=== PATIENT | female | born 1995 | race Caucasian/White ===

== ENCOUNTER 2018-04-12 21:57 | Inpatient (IN) | payer BC, OTHER ==
[~2018-04-12] VITALS: Ht 160 cm; Wt 52.2 kg
--- NOTE | 2018-04-12 23:35 | NUR ---
Pre-Admission Note Pt is a 23 year old female seen at intake, A&Ox4. Pt appears to be anxious. Pt reports feeling fatigued, and states, "I feel like am all over the place". Upon assessment, pt often changes the answers to the questions being asked. Pt reports she is here for benzodiazepines, opiates, alcohol and also uses methamphetamines, cocaine and cannabis. Vital signs taken, rules of the unit explained such as vital signs Q4H, wasting of controlled substances, kitchen access, and smoking patio privileges. Pt verbalized understanding. Will continue with admission process upon arrival on unit.
[2018-04-13] VITALS: BP 118/70
[2018-04-13] MEDS ORDERED: diphenhydrAMINE 50 MG CAPSULE PO PRN
[2018-04-13] MEDS ORDERED: HYDROXYZINE PAMOATE 25 MG CAPSULE PO PRN
[2018-04-13] MEDS ORDERED: CLONIDINE HCL 0.1 MG TABLET PO PRN
[2018-04-13] MEDS ORDERED: ONDANSETRON ODT 4 MG TAB.RAPDIS SL PRN
[2018-04-13] MEDS ORDERED: MIRALAX 17 GM POWD.PACK PO PRN
[2018-04-13] MEDS ORDERED: LOPERAMIDE HCL 2 MG CAPSULE PO PRN ×2
[2018-04-13] MEDS ORDERED: MAGNESIUM HYDROXIDE 30 ML LIQUID UDC PO PRN
[2018-04-13] MEDS ORDERED: LORAZEPAM 2 MG/1 ML VIAL IM PRN
[2018-04-13] MEDS ORDERED: ONDANSETRON 4 MG/2 ML VIAL IM PRN
[2018-04-13] MEDS ORDERED: METHOCARBAMOL 750 MG TABLET PO PRN
[2018-04-13] MEDS ORDERED: MAG HYDROX/AL HYDROX/SIMETH 30 ML LIQUID UDC PO PRN
[2018-04-13] MEDS ORDERED: IBUPROFEN 600 MG TABLET PO PRN
[2018-04-13] MEDS ORDERED: DIAZEPAM 5 MG TABLET PO PRN
[2018-04-13] MEDS ORDERED: DICYCLOMINE HCL 20 MG TABLET PO PRN
[2018-04-13] MEDS ORDERED: ACETAMINOPHEN 325 MG TABLET PO PRN
[2018-04-13] MEDS ORDERED: BUPRENORPHINE HCL 2 MG TAB.SUBL SL PRN
[2018-04-13] MEDS ORDERED: DIAZEPAM 10 MG TABLET PO PRN
--- NOTE | 2018-04-13 | NUR ---
COWS 10, CIWA 10 Patient reports that her anxiety is "always high." Patient reports "skin crawling, a little nausea, some chills." COWS 10 and CIWA 10 at this time, awaiting pending orders. Safety measures in place, side rails up x2, bed locked in low position, call light within reach. SN to complete admission. Will continue to monitor.
[2018-04-13 00:33] LABS: BASOPHILS % (AUTO) 0.4 % (0.0-2.0); EOSINOPHILS % (AUTO) 0.8 % (0.0-7.0); HEMATOCRIT 41.9 % (31.2-41.9); HEMOGLOBIN 14.5 g/dL (10.9-14.3); LYMPHOCYTES # (AUTO) 1.4 K/uL (20.0-40.0); LYMPHOCYTES % (AUTO) 26.1 % (20.5-51.5); MEAN CORPUSCULAR HEMOGLOBIN 29.9 uug (24.7-32.8); MEAN CORPUSCULAR HGB CONC 35 g/dL (32.3-35.6); MEAN CORPUSCULAR VOLUME 86.6 fL (75.5-95.3); MONOCYTES # (AUTO) 0.6 K/uL (2.0-10.0); MONOCYTES % (AUTO) 10.5 % (0.0-11.0); NEUTROPHILS # (AUTO) 3.4 K/uL (1.8-8.9); NEUTROPHILS % (AUTO) 62.2 % (38.5-71.5); PLATELET COUNT (AUTO) 242 K/uL (179-408); RED BLOOD CELL COUNT(AUTO) 4.84 MIL/uL (3.63-4.92); WHITE BLOOD COUNT (AUTO) 5.5 K/uL (3.8-11.8)
[2018-04-13 00:40] LABS: ETHANOL < 3 MG/DL (0-0)
[2018-04-13 00:58] LABS: ALANINE AMINOTRANSFERASE 333 U/L (14-59); ALKALINE PHOSPHATASE 107 U/L (50-136); AMYLASE 67 U/L (25-115); ASPARTATE AMINOTRANSFERASE 118 U/L (15-37); BILIRUBIN,TOTAL 0.8 mg/dL (0.2-1.0); CARBON DIOXIDE 29 mmol/L (21-32); CHLORIDE 102 mmol/L (98-107); CREATININE 0.7 mg/dL (0.6-1.3); GLUCOSE 85 mg/dL (74-106); MAGNESIUM 1.8 mg/dL (1.8-2.4); POTASSIUM 3.2 mmol/L (3.5-5.1); TOTAL PROTEIN, SERUM 7.5 g/dL (6.4-8.2); UREA NITROGEN, BLOOD 6 mg/dL (7-18)
[2018-04-13 01:14] LABS: LIPASE 144 U/L (73-393)
[2018-04-13 01:24] LABS: THYROID STIMULATING HORMONE 0.219 mIU/mL (0.358-3.740)
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
[2018-04-13] MEDS ORDERED: DIAZ5TAB4 PO (02:10)
[2018-04-13] MEDS ORDERED: GABA-534 PO (02:10)
[2018-04-13] MEDS ORDERED: MIRT15TA PO (02:10)
[2018-04-13] MEDS ORDERED: CLON0.2T PO (02:10)
[2018-04-13 02:14] LABS: *URINE HCG, QUAL NEGATIVE (NEGATIVE)
[2018-04-13 02:23] LABS: *AMPHETAMINE, URINE NEGATIVE (NEGATIVE); *BARBITURATE, URINE NEGATIVE (NEGATIVE); *CANNABINOID, URINE POSITIVE (NEGATIVE); *COCCAINE, URINE NEGATIVE (NEGATIVE); *OPIATE, URINE POSITIVE (NEGATIVE); *PHENCYCLIDINE SCREEN,URINE NEGATIVE (NEGATIVE)
--- NOTE | 2018-04-13 03:00 | NUR ---
COWS 13, CIWA 16 Patient states, "I'm pretty sure I'm withdrawing from the benzos, but I don't want to take Subutex until the morning." Patient complains of chills, nausea, "bones aching, skin crawling," and patient is visibly tremulous. Current COWS 13, CIWA 16. Safety measures in place, side rails up x2, bed locked in low position, call light within reach. Will continue to monitor.
[2018-04-13] MEDS ORDERED: POTASSIUM CHLORIDE 20 MEQ TAB.PRT.SR PO ONE ×2 (03:30→15:00)
[2018-04-13] MEDS: DIAZEPAM 10 MG TABLET PO PRN ×2 (03:33→10:09)
--- NOTE | 2018-04-13 03:33 | NUR ---
PRN VALIUM 20mg PRN Valium 20mg given PO for CIWA of 16. Patient continues to state that she would like to start Subutex in the morning. Safety measures in place, side rails up x2, bed locked in low position, call light within reach. Will monitor for effectiveness.
[2018-04-13 04:00] VITALS: BP 112/72
[2018-04-13] MEDS ORDERED: ETON68IM3 SQ (04:04)
--- NOTE | 2018-04-13 04:33 | NUR ---
PRN VALIUM REASSESSMENT - COWS 13, CIWA 16 Patient denies any improvement of withdrawal symptoms at one hour reassessment. Current HR 116, BP 131/88, O2 sat 99%, respirations 18/min. Patient denies pain at this time. Safety measures in place, side rails up x2, bed locked in low position, call light within reach. Will continue to monitor.
--- NOTE | 2018-04-13 07:30 | NUR ---
start of shift note: received pt from maintenance technician 3rd shift nurse, pt is currently sleeping at this time. pt only slept for 3 hours will allow pt to receive adequate amount of sleep. and will re-assess if pt will need medication. pt's last cows 13 and ciwa 16.
--- NOTE | 2018-04-13 07:30 | NUR ---
END OF SHIFT Patient is a 23-year-old female admitted on 04/12/18 for benzo and opiate withdrawal. Patient is scheduled to start a 5-day Valium and 5-day Subutex taper today. Patient's last COWS was 13, last CIWA was 16. Patient received PRN Valium 20mg for CIWA of 16. Patient slept for about 1 hour, total intake of 2,091mL, void x3, stool x1. Patient is on fall and seizure precautions with most recent seizure about 1.5-2 months ago. Safety measures in place, side rails up x2, bed locked in low position, call light within reach. Will endorse to day shift.
[2018-04-13 09:00] VITALS: BP 100/62
[2018-04-13] MEDS ORDERED: TUBERCULIN,PURIF.PROT.DERIV. 5 TU/0.1 ML TEST ID ONE (09:00)
[2018-04-13] MEDS: MULTIVITAMINS,THERAPEUTIC TABLET PO SCH (10:09)
--- NOTE | 2018-04-13 10:09 | NUR ---
PRN administration: pt was seen and examined by with order to give 20 mg prn and 4 mg subutex and to start taper at 1300.
[2018-04-13] MEDS ORDERED: 5 DAY TAPER BUPRENORPHINE -SERENITY PROTOCOL SL PRN (10:15)
[2018-04-13] MEDS ORDERED: 5 DAY TAPER VALIUM-SERENITY PROTOCOL PO PRN (10:15)
[2018-04-13 12:36] VITALS: BP 100/60
[2018-04-13] MEDS: DIAZEPAM 10 MG TABLET PO SCH ×3 (13:22→20:49)
[2018-04-13] MEDS: BUPRENORPHINE HCL 2 MG TAB.SUBL SL SCH ×3 (13:22→21:49)
[2018-04-13] MEDS ORDERED: 4 DAY PHENOBARBITAL TAPER -SERENITY PROTOCOL PO PRN (14:45)
[2018-04-13] MEDS ORDERED: PHENOBARBITAL 60 MG TABLET PO SCH (14:45)
[2018-04-13] MEDS: PHENOBARBITAL 60 MG TABLET PO SCH ×2 (16:37→20:49)
[2018-04-13] MEDS ORDERED: PHENOBARBITAL 32.4 MG TABLET PO SCH (17:00)
[2018-04-13] MEDS ORDERED: GABAPENTIN 400 MG CAPSULE PO SCH (17:00)
[2018-04-13 18:40] VITALS: BP 100/63
--- NOTE | 2018-04-13 19:01 | NUR ---
end of shift note: pt is in bed resting and watching TV. pt appears to be med seeking Mother called who has consent and verbalized she has hx of leaving AMA. pt chooses medications and threatens to leave AMA and go to another detox if we don't give her what she wants. Pt was noted fratenizing with other patients. pt has tendencies to ask for PRN's even before taking scheduled doses.pt also verbalized she is fine with ativan and phenobarbital despite reporting an allergy to ativan. pt appears cheerful and lively with other clients and sick around administration and medical staff. Pt's Last documented cows is 14 and ciwa 16. tb skin test was administered. Pt has 2 more phenobarbital doses to prevent seizures. will endorse pt to night warehouse selector nurse.
--- NOTE | 2018-04-13 19:30 | NUR ---
Start of shift note Received report from day shift nurse. Patient is a 23 year old male admitted for Benzo/Opiate withdrawal. Patient is on 5 day Valium, 5 day Subutex and 4 day Phenobarbital taper. Patient appears to be med seeking and appears to be lively with other clients and sick around administration and medical staff. Patient was given PRN Valium and Subutex. Last COWS 13 and CIWA 16. Patient alert and oriented x 4. Patient presents with flat affect, blunt, guarded, suspicious, disheveled, anxious, restless, chills, sweating , abdominal cramping, tremors on bilateral hands, restless legs . Relaxation technique provided. Safety measures in place. Call light in reach. Will continue to monitor
[2018-04-13 20:00] VITALS: BP 117/72
--- NOTE | 2018-04-13 20:00 | NUR ---
COWS and CIWA assessment Patient anxious, restless, irritated, agitated, chills, sweating , abdominal cramping, tremors on bilateral hands, restless legs COWS 16 and CIWA 16.
[2018-04-13] MEDS ORDERED: MIRTAZAPINE 15 MG TABLET PO SCH (21:00)
--- NOTE | 2018-04-13 21:50 | NUR ---
Behavioral note During administration of Subutex SL, Patient educated to place medication under the tongue to dissolve and not to swallow. Patient placed medication under the tongue and immediately began to slowly move her blanket towards her mouth with her hand moving upward in attempt to reach for something or to cover her mouth. Patient was asked to open her mouth which she complied with , yet was irritable about. The medication was not under her tongue or anywhere in the oral cavity. Charge Nurse and MARKETING DESIGNER Geochemist was notified. Body search and room search conducted , patient was defensive and threatened to leave AMA. No contraband found but during room search, vape pen coil was found inside box of cigarettes. Patient was on patio restriction which administration was aware. Patient got angry and lead her to punching the wall with her right hand. Patient's hand assessed. Redness noted but no open wounds.
--- NOTE | 2018-04-14 | NUR ---
COWS and CIWA deferred Patient lying in bed with eyes close. Respiration even and unlabored. VS Refused. Will continue to monitor.
--- NOTE | 2018-04-14 04:00 | NUR ---
COWS and CIWA deferred Patient lying in bed with eyes closed. Respiration even and unlabored. VS refused. Will continue to monitor.
--- NOTE | 2018-04-14 04:45 | NUR ---
COWS and CIWA assessment Patient woke up anxious, restless, irritable and agitated. COWS 10 and CIWA 10. Relaxation technique provided. Patient went down to smoke
--- NOTE | 2018-04-14 07:13 | NUR ---
End of shift note Patient slept 5 hours. Fluid intake 855 ml. Voided x 1 . No BM . Monitored patient throughout shift. Patient presented with flat affect, unshaven, anxiety , restlessness and headache. Scheduled taper given as ordered, tolerated well and no adverse reaction noted. Patient was given PRN Tylenol for headache, effective. AT 2346, patient was anxious and restless. PRN Clonidine given. Safety measures in place. Call light in reach. Will continue to monitor. Last . Addendum: 04/14/18 at 0716 by FRANKI RAMIREZ LVN ERROR: this charting is for another patient
--- NOTE | 2018-04-14 07:15 | NUR ---
End of shift note Patient slept 6 hours. Fluid intake1, 841ml. Voided x 5 . BM x 1. Monitored patient throughout shift. Patient presented with flat affect, blunt, guarded, suspicious, disheveled, anxious, restless, chills, sweating , abdominal cramping, tremors on bilateral hands, restless legs . Scheduled taper given as ordered. Relaxation technique provided. Patient did not require PRN medication. Safety measures in place. Call light in reach. Will continue to monitor . Last COWS 10 and CIWA 10.
[2018-04-14 08:00] VITALS: BP 92/50
--- NOTE | 2018-04-14 08:00 | NUR ---
Start of Shift Notes/COWS/CIWA Assessment: Received patient in her room. Appears somnolent upon waking. She became irritable from being woken up and states "This is bullshit." Patient was approached in a calm and professional manner. She appears anxious and agitated, demanding to go smoke. She complains chills, hot flashes, sweats and is noted with gross tremors to BUE and tolerable body ache of 2/10. COWS 11/CI 14 at this time. Patient is a 23 year old female admitted for opiate/BZO withdrawal who was placed on a modified Phenobarbital, 5-day Subutex and 5-day Valium taper as ordered. Per night report, patient did not get any PRNs, however had an episode of diverting meds requiring SHIP MATE to accompany nurse during med pass. Slept for a total of 6 hours. Last COWS /CI 10. Educated patient on her current plan of care for the day and her medication regimen. Encouraged oral fluid intake and encouraged group participation to learn new skills to prevent relapse.
[2018-04-14 08:34] LABS: BILIRUBIN,DIRECT 0.2 mg/dL (0.0-0.2); BILIRUBIN,TOTAL 0.5 mg/dL (0.2-1.0); CREATININE 0.8 mg/dL (0.6-1.3); POTASSIUM 3.7 mmol/L (3.5-5.1); TOTAL PROTEIN, SERUM 6.1 g/dL (6.4-8.2)
[2018-04-14 08:45] LABS: THYROID STIMULATING HORMONE 0.227 mIU/mL (0.358-3.740)
[2018-04-14] MEDS ORDERED: GABAPENTIN 400 MG CAPSULE PO SCH (09:00)
[2018-04-14] MEDS ORDERED: BUPRENORPHINE HCL 2 MG TAB.SUBL SL SCH (09:00)
[2018-04-14] MEDS ORDERED: DIAZEPAM 10 MG TABLET PO SCH (09:00)
[2018-04-14] MEDS: PHENOBARBITAL 60 MG TABLET PO SCH (09:50)
[2018-04-14] MEDS: MULTIVITAMINS,THERAPEUTIC TABLET PO SCH (09:50)
--- NOTE | 2018-04-14 10:40 | NUR ---
Code Hearn: Patient demanded to smoke despite smoking schedule as patient is currently on patio restrictions. Patient became upset after finding out that that it was not her turn to smoke. Patient walked aggressively while yelling "This is bullshit! I want to get the fuck out of here now!" while walking towards the stairs. HEAT TREATER APPRENTICE and staff followed patient all the way to the front lobby and was able to be redirected back to the unit.
--- NOTE | 2018-04-14 11:22 | NUR ---
AMA: Patient demanded to leave the unit at this time after multiple attempts by staff to encourage her to stay to continue on with her sobriety. Patient was adamant on leaving after risk and benefits were explained to her but still insisted on leaving against medical advice. She denies S/I or H/I at this time. No AV hallucinations noted. VS stable. All clothing, valuables and medications were returned to the patient.
[2018-04-14 14:11] LABS: HEPATITIS B SURFACE AG Negative (Negative)
[2018-04-14] MEDS ORDERED: PHENOBARBITAL 60 MG TABLET PO SCH (15:00)
[2018-04-15 05:07] LABS: TRIIODOTHYRONINE (T3 UPTAKE) 23 % (24-39)
[2018-04-15] MEDS ORDERED: BUPRENORPHINE HCL 2 MG TAB.SUBL SL SCH ×2 (09:00→15:00)
[2018-04-15] MEDS ORDERED: DIAZEPAM 5 MG TABLET PO SCH (09:00)
[2018-04-15] MEDS ORDERED: PHENOBARBITAL 60 MG TABLET PO SCH (21:00)
[2018-04-16] MEDS ORDERED: DIAZEPAM 5 MG TABLET PO SCH (09:00)
[2018-04-16] MEDS ORDERED: BUPRENORPHINE HCL 2 MG TAB.SUBL SL SCH (09:00)
[2018-04-17] MEDS ORDERED: BUPRENORPHINE HCL 2 MG TAB.SUBL SL SCH (09:00)
[2018-04-17] MEDS ORDERED: PHENOBARBITAL 60 MG TABLET PO SCH (09:00)
[2018-04-17] MEDS ORDERED: DIAZEPAM 5 MG TABLET PO SCH (09:00)
== END 2018-04-14 13:22 | disposition left against medical advice (07) | DRG 894 ==
LOC: SRC 22:09
PROVIDERS: ADMIT Internal Medicine; ATTEND Internal Medicine
PROC: HZ2ZZZZ Detoxification Services for Substance Abuse Treatment (ICD-10-PCS; principal; 2018-04-12)
DX: F10.230 Alcohol dependence with withdrawal, uncomplicated (principal); F33.2 Major depressive disorder, recurrent severe without psychotic features; F11.23 Opioid dependence with withdrawal; F13.230 Sedative, hypnotic or anxiolytic dependence with withdrawal, uncomplicated; F14.10 Cocaine abuse, uncomplicated; Y90.9 Presence of alcohol in blood, level not specified; F41.9 Anxiety disorder, unspecified; E73.9 Lactose intolerance, unspecified; E87.6 Hypokalemia; F17.210 Nicotine dependence, cigarettes, uncomplicated; Z86.19 Personal history of other infectious and parasitic diseases; F15.90 Other stimulant use, unspecified, uncomplicated
CPT/HCPCS: 36415; 80307; 80346; 80349; 80361; 83690; 83735; 84443; 84479; 84480; 84703; 85025; 86580; 86592; 86705; 86803; 87340; 87806; A4663; G0480; J8499